=== PATIENT | male | born 1965 | race Caucasian/White ===

== ENCOUNTER 2016-10-13 19:07 | Emergency (ER) | payer MEDICAID ==
[~2016-10-13] VITALS: Ht 165.1 cm; Wt 77.0 kg
[~2016-10-13 19:07] MED LIST: BACL-141; GLIP2.5T; INSULIN; KETO15VI22; METF100C2; UNK HTN MEDS
[2016-10-13 22:23] LABS: BASOPHILS % 0.4 % (0.0-2.0); EOSINOPHILS % 0.5 % (0.0-5.0); HEMATOCRIT. 39.9 % (42.0-52.0); LYMPHOCYTES % 23.9 % (20.0-50.0); MEAN CORPUSCULAR HEMOGLOBIN 31.1 pg (28.0-32.0); MEAN CORPUSCULAR VOLUME 88.5 fL (80.0-94.0); MEAN PLATELET VOLUME 7.2 fl (7.4-10.4); MONOCYTES % 8.2 % (2.0-8.0); PLATELET 119 x1000/uL (130-400); RED BLOOD CELL COUNT 4.51 mill/uL (4.7-6.1); RED CELL DISTRIBUTION WIDTH 14.6 % (11.6-14.6)
[2016-10-13 22:38] LABS: CARBON DIOXIDE 27 mEq/L (21-32); CHLORIDE 99 mEq/L (98-107); ETHANOL BLOOD 224 mg/dL
[2016-10-14] MEDS ORDERED: KETOROLAC 60MG/2ML VIAL IM ONE (00:30)
[2016-10-14 01:04] VITALS: BP 132/86
== END 2016-10-14 02:09 | disposition home or self-care (01) ==
LOC: ER 19:29
DX: F10.129 Alcohol abuse with intoxication, unspecified (principal); E11.40 Type 2 diabetes mellitus with diabetic neuropathy, unspecified; I10 Essential (primary) hypertension; E78.00 Pure hypercholesterolemia, unspecified; Y90.7 Blood alcohol level of 200-239 mg/100 ml; Z59.0 Homelessness; Z79.4 Long term (current) use of insulin
CPT/HCPCS: 36415; 80053; 85025; 96372; 99284; G0482; J1885; Z7610

== ENCOUNTER 2017-03-20 20:42 | Emergency (ER) | payer MEDICAID ==
[~2017-03-20] VITALS: Ht 167.6 cm; Wt 77.0 kg
[2017-03-21 00:37] LABS: BASOPHILS % 0.7 % (0.0-2.0); EOSINOPHILS % 1.4 % (0.0-5.0); HEMATOCRIT. 43.2 % (42.0-52.0); LYMPHOCYTES % 22.8 % (20.0-50.0); MEAN CORPUSCULAR HEMOGLOBIN 32.4 pg (28.0-32.0); MEAN CORPUSCULAR VOLUME 93.4 fL (80.0-94.0); MEAN PLATELET VOLUME 7.6 fl (7.4-10.4); MONOCYTES % 9.8 % (2.0-8.0); NEUTROPHILS % 65.3 % (40.0-76.0); PLATELET 150 x1000/uL (130-400); RED BLOOD CELL COUNT 4.62 mill/uL (4.7-6.1); RED CELL DISTRIBUTION WIDTH 15.4 % (11.6-14.6)
[2017-03-21 00:42] LABS: CARBON DIOXIDE 25 mEq/L (21-32); CHLORIDE 108 mEq/L (98-107)
[2017-03-21 01:06] LABS: ETHANOL BLOOD 318 mg/dL
[2017-03-21 01:09] LABS: CLARITY URINE CLEAR (CLEAR); COLOR URINE YELLOW (YELLOW); KETONES URINE NEGATIVE (NEGATIVE); LEUKOCYTE ESTERASE URINE NEGATIVE (NEGATIVE); NITRITE URINE NEGATIVE (NEGATIVE); OCCULT BLOOD URINE NEGATIVE (NEGATIVE); PROTEIN URINE NEGATIVE (NEGATIVE); SPECIFIC GRAVITY URINE 1.011 (1.005-1.030)
[2017-03-21 01:30] LABS: *AMPHETAMINES SCREEN URINE NEGATIVE (NEGATIVE); *BARBITURATES SCREEN URINE NEGATIVE (NEGATIVE); *BENZODIAZEPINES SCREEN URINE NEGATIVE (NEGATIVE); *COCAINE SCREEN URINE NEGATIVE (NEGATIVE); CANNABINOID URINE SCREEN NEGATIVE (NEGATIVE); METHADONE URINE SCREEN NEGATIVE (NEGATIVE); OPIATES URINE SCREEN NEGATIVE (NEGATIVE); PHENCYCLIDINE URINE SCREEN NEGATIVE (NEGATIVE)
[2017-03-21 08:47] VITALS: BP 115/87
== END 2017-03-21 09:05 | disposition home or self-care (01) ==
LOC: ER 20:42
DX: F10.129 Alcohol abuse with intoxication, unspecified (principal); R10.9 Unspecified abdominal pain; I10 Essential (primary) hypertension; E78.00 Pure hypercholesterolemia, unspecified; E11.9 Type 2 diabetes mellitus without complications; Z79.4 Long term (current) use of insulin
CPT/HCPCS: 36415; 80053; 80305; 81003; 83690; 85025; 99284; G0482

== ENCOUNTER 2018-06-14 14:52 | Emergency (ER) | payer MEDICAID ==
[~2018-06-14] VITALS: Ht 167.6 cm; Wt 86.0 kg
[2018-06-14 15:04] VITALS: BP 146/84
== END 2018-06-14 18:32 | disposition left against medical advice (07) ==
LOC: ER 15:03
DX: M79.18 Myalgia, other site (principal); Z53.21 Procedure and treatment not carried out due to patient leaving prior to being seen by health care provider

== ENCOUNTER 2018-09-08 10:02 | Inpatient (IN) | payer MEDICAID ==
[~2018-09-08] VITALS: Ht 167.6 cm; Wt 87.5 kg
[2018-09-08 11:45] LABS: CLARITY URINE CLEAR (CLEAR); COLOR URINE YELLOW (YELLOW); KETONES URINE NEGATIVE (NEGATIVE); LEUKOCYTE ESTERASE URINE NEGATIVE (NEGATIVE); NITRITE URINE NEGATIVE (NEGATIVE); OCCULT BLOOD URINE NEGATIVE (NEGATIVE); PROTEIN URINE NEGATIVE (NEGATIVE); SPECIFIC GRAVITY URINE 1.013 (1.005-1.030)
[2018-09-08 11:52] LABS: CHLORIDE 109 mEq/L (98-107)
[2018-09-08 11:54] LABS: PROTHROMBIN TIME 10.4 sec (9.6-11.0)
[2018-09-08 11:56] LABS: BASOPHILS % 1.1 % (0.0-2.0); EOSINOPHILS % 5.5 % (0.0-5.0); HEMATOCRIT. 40.1 % (42.0-52.0); HEMOGLOBIN. 14.1 g/dL (14.0-18.0); LYMPHOCYTES % 21.8 % (20.0-50.0); MEAN CORPUSCULAR VOLUME 88.3 fL (80.0-94.0); MEAN PLATELET VOLUME 9.3 fl (7.4-10.4); MONOCYTES % 7.3 % (2.0-8.0); NEUTROPHILS % 64.3 % (40.0-76.0); PLATELET 181 x1000/uL (130-400); RED BLOOD CELL COUNT 4.54 mill/uL (4.7-6.1); RED CELL DISTRIBUTION WIDTH 13.4 % (11.6-14.6)
[2018-09-08 11:58] LABS: ETHANOL BLOOD < 10 mg/dL
[2018-09-08 11:59] LABS: *AMPHETAMINES SCREEN URINE NEGATIVE (NEGATIVE); *BARBITURATES SCREEN URINE NEGATIVE (NEGATIVE); *BENZODIAZEPINES SCREEN URINE NEGATIVE (NEGATIVE); *COCAINE SCREEN URINE NEGATIVE (NEGATIVE); METHADONE URINE SCREEN NEGATIVE (NEGATIVE)
[2018-09-08 12:00] LABS: LDL CHOLESTEROL 100 mg/dL (5-100)
[2018-09-08 12:01] LABS: CANNABINOID URINE SCREEN NEGATIVE (NEGATIVE); OPIATES URINE SCREEN NEGATIVE (NEGATIVE); PHENCYCLIDINE URINE SCREEN NEGATIVE (NEGATIVE)
[2018-09-08] MEDS ORDERED: ASPIRIN 81MG TABLET PO ONE (12:45)
[2018-09-08] MEDS: ACETAMINOPHEN 325MG TABLET PO PRN ×2 (16:00→22:01)
[2018-09-08 17:10] VITALS: BP 133/89
[2018-09-08 17:20] VITALS: BP 133/89
[2018-09-08 20:00] VITALS: BP 134/86
[2018-09-08] MEDS ORDERED: DEXTROSE 50% WATER 50ML SYRINGE IV PRN (21:00)
[2018-09-08] MEDS ORDERED: ENOXAPARIN 40MG/0.4ML SYR SUBCUT NR (21:00)
[2018-09-08] MEDS ORDERED: ACETAMINOPHEN 325MG TABLET PO PRN (21:00)
[2018-09-08] MEDS ORDERED: CLONIDINE 0.1MG TABLET PO PRN (21:00)
[2018-09-08] MEDS: BLOOD SUGAR DIAGNOSTIC STRIP TEST SCH (21:52)
[2018-09-08] MEDS: GABAPENTIN 300MG CAPSULE PO SCH (22:00)
[2018-09-08] MEDS: INSULIN LISPRO 100 UNITS/ML SUBCUT SCH (22:00)
[2018-09-09] VITALS: BP 109/63
[2018-09-09 04:00] VITALS: BP 113/68
[2018-09-09] MEDS: GABAPENTIN 300MG CAPSULE PO SCH ×3 (06:20→21:50)
[2018-09-09] MEDS: BLOOD SUGAR DIAGNOSTIC STRIP TEST SCH ×4 (06:22→21:50)
[2018-09-09 08:00] VITALS: BP 112/71
[2018-09-09] MEDS: INSULIN LISPRO 100 UNITS/ML SUBCUT SCH ×4 (08:17→21:50)
[2018-09-09] MEDS ORDERED: ASPIRIN 81MG TABLET PO SCH (09:00)
[2018-09-09 12:00] VITALS: BP 121/80
[2018-09-09 12:14] LABS: EOSINOPHILS % 5.9 % (0.0-5.0); HEMATOCRIT. 41.6 % (42.0-52.0); HEMOGLOBIN. 14.5 g/dL (14.0-18.0); LYMPHOCYTES % 24.7 % (20.0-50.0); MEAN CORPUSCULAR HEMOGLOBIN 30.5 pg (28.0-32.0); MEAN CORPUSCULAR VOLUME 87.7 fL (80.0-94.0); MEAN PLATELET VOLUME 9.4 fl (7.4-10.4); MONOCYTES % 6.5 % (2.0-8.0); NEUTROPHILS % 61.9 % (40.0-76.0); PLATELET 205 x1000/uL (130-400); RED BLOOD CELL COUNT 4.75 mill/uL (4.7-6.1); RED CELL DISTRIBUTION WIDTH 13.5 % (11.6-14.6)
[2018-09-09 12:18] LABS: T4 FREE 1.16 ng/dL (0.76-1.46)
[2018-09-09 12:50] LABS: FOLIC ACID (FOLATE) SERUM 14.2 ng/mL (>5.38)
[2018-09-09] MEDS: ACETAMINOPHEN 325MG TABLET PO PRN (12:58)
[2018-09-09] MEDS ORDERED: CLOPIDOGREL 75MG TABLET PO NR (15:15)
[2018-09-09] MEDS: TRAMADOL 50MG TABLET PO PRN (15:33)
[2018-09-09 16:00] VITALS: BP 108/68
[2018-09-09 20:00] VITALS: BP 123/83
[2018-09-09 21:38] LABS: CHLORIDE 104 mEq/L (98-107)
[2018-09-09 21:44] LABS: LDL CHOLESTEROL 112 mg/dL (5-100)
[2018-09-09 21:46] LABS: HDL CHOLESTEROL 33 mg/dL (40-59)
[2018-09-10] VITALS: BP 112/68
[2018-09-10] MEDS: TRAMADOL 50MG TABLET PO PRN ×2 (02:28→13:43)
[2018-09-10 04:00] VITALS: BP 121/72
[2018-09-10] MEDS: GABAPENTIN 300MG CAPSULE PO SCH ×2 (06:06→13:25)
[2018-09-10] MEDS: BLOOD SUGAR DIAGNOSTIC STRIP TEST SCH ×2 (06:40→17:40)
[2018-09-10] MEDS: INSULIN LISPRO 100 UNITS/ML SUBCUT SCH ×3 (07:57→17:51)
[2018-09-10 08:00] VITALS: BP 131/83
[2018-09-10] MEDS ORDERED: IBUP-2030 MT (08:49)
[2018-09-10] MEDS ORDERED: LORA-1118 MT (08:49)
[2018-09-10] MEDS ORDERED: METF100092 MT (08:49)
[2018-09-10] MEDS ORDERED: GABA-533 MT (08:49)
[2018-09-10] MEDS ORDERED: CLOPIDOGREL 75MG TABLET PO SCH (09:00)
[2018-09-10 12:00] VITALS: BP 126/84
[2018-09-10 17:28] VITALS: BP 110/73
[2018-09-10 18:19] VITALS: BP 110/73
== END 2018-09-10 18:48 | disposition home or self-care (01) | DRG 82 ==
LOC: ER 10:02 → 6WST 12:50 → EDBEDREQ 12:52 → EDBEDREQSVC 12:52 → ENRESERV 15:30 → 5WST 09-10 12:17
PROVIDERS: ADMIT Internal Medicine; ATTEND Internal Medicine
DX: E11.39 Type 2 diabetes mellitus with other diabetic ophthalmic complication (principal); H49.02 Third [oculomotor] nerve palsy, left eye; H49.20 Sixth [abducent] nerve palsy, unspecified eye; E11.42 Type 2 diabetes mellitus with diabetic polyneuropathy; E78.00 Pure hypercholesterolemia, unspecified; G89.29 Other chronic pain; M48.061 Spinal stenosis, lumbar region without neurogenic claudication; E78.5 Hyperlipidemia, unspecified; Z82.49 Family history of ischemic heart disease and other diseases of the circulatory system; Z83.3 Family history of diabetes mellitus; Z86.73 Personal history of transient ischemic attack (TIA), and cerebral infarction without residual deficits; Z79.899 Other long term (current) drug therapy
CPT/HCPCS: 36415; 70544; 70553; 71045; 80048; 80061; 80305; 80320; 82607; 82746; 82962; 83036; 83721; 84439; 84443; 84481; 84484; 85651; 86038; 86592; 93005; 93306; 93880; 97162; 97166; 99285; J1650; J1815; G0480

== ENCOUNTER 2019-07-21 17:10 | Emergency (ER) | payer MEDICAID ==
[~2019-07-21] VITALS: Ht 175.3 cm; Wt 78.0 kg
[~2019-07-21 17:10] MED LIST changes: -BACL-141; +GABA-533 MT; -GLIP2.5T; +IBUP-2030 MT; -INSULIN; -KETO15VI22; +LORA-1118 MT; +METF100092 MT; -METF100C2; -UNK HTN MEDS
[2019-07-21 17:19] VITALS: BP 108/67
[2019-07-21] MEDS ORDERED: BACITRACIN ZINC OINT UDPKT TOP ONE (18:00)
[2019-07-21] MEDS ORDERED: TETANUS, DIPHTHERIA, PERTUSSIS VAC/PF 0.5ML (>7YR OLD) IM ONE (18:00)
== END 2019-07-21 18:13 | disposition home or self-care (01) ==
LOC: ER 17:10
DX: S90.415A Abrasion, left lesser toe(s), initial encounter (principal); X58.XXXA Exposure to other specified factors, initial encounter; Y93.89 Activity, other specified; I10 Essential (primary) hypertension; Y92.89 Other specified places as the place of occurrence of the external cause; E11.9 Type 2 diabetes mellitus without complications; Z23 Encounter for immunization; Z79.84 Long term (current) use of oral hypoglycemic drugs; Z86.73 Personal history of transient ischemic attack (TIA), and cerebral infarction without residual deficits
CPT/HCPCS: 82962; 90471; 90715; 99283

== ENCOUNTER 2021-01-25 17:28 | Emergency (ER) | payer MEDICARE, MEDICAID ==
[~2021-01-25] VITALS: Ht 175.3 cm; Wt 85.0 kg
[2021-01-25] MEDS ORDERED: KETOROLAC 60MG/2ML VIAL IM ONE (17:45)
[2021-01-25] MEDS ORDERED: DIAZEPAM 5 MG TABLET PO ONE (17:45)
[2021-01-25 18:13] VITALS: BP 133/88
[2021-01-25] MEDS ORDERED: IBUP-2030 MT (19:09)
[2021-01-25] MEDS ORDERED: METH-773 MT (19:09)
== END 2021-01-25 19:30 | disposition home or self-care (01) ==
LOC: ER 17:28
DX: M54.59 Other low back pain (principal); M25.551 Pain in right hip; I10 Essential (primary) hypertension; E11.9 Type 2 diabetes mellitus without complications; E78.00 Pure hypercholesterolemia, unspecified; Z86.73 Personal history of transient ischemic attack (TIA), and cerebral infarction without residual deficits
CPT/HCPCS: 72100; 73502; 93005; 96372; 99284; J1885

== ENCOUNTER 2021-06-05 08:52 | Inpatient (IN) | payer MEDICARE, MEDICAID ==
[~2021-06-05] VITALS: Ht 167.6 cm; Wt 88.0 kg
[~2021-06-05 08:52] MED LIST changes: +METH-773 MT
[2021-06-05] MEDS ORDERED: SODIUM CHLORIDE 0.9% 1,000 ML IV ONE (09:30)
[2021-06-05 09:54] LABS: BASOPHILS % 0.2 % (0.0-2.0); EOSINOPHILS % 0.3 % (0.0-5.0); HEMATOCRIT. 39.7 % (42.0-52.0); LYMPHOCYTES % 9.1 % (20.0-50.0); MEAN CORPUSCULAR VOLUME 85.2 fL (80.0-94.0); MEAN PLATELET VOLUME 8.5 fl (7.4-10.4); MONOCYTES % 9.6 % (2.0-8.0); NEUTROPHILS % 80.8 % (40.0-76.0); PLATELET 192 x1000/uL (130-400); RED BLOOD CELL COUNT 4.67 mill/uL (4.7-6.1)
[2021-06-05 10:00] LABS: CHLORIDE 101 mEq/L (98-107)
[2021-06-05] MEDS ORDERED: ONDANSETRON HCL 4MG/2ML INJ IV ONE (11:15)
[2021-06-05] MEDS ORDERED: MORPHINE SULFATE 4 MG/ML CPJ (NOT FOR IM USE) IV ONE (11:15)
[2021-06-05] MEDS ORDERED: IOHEXOL-300 100 ML BOTTLE ONE (12:23)
[2021-06-05] MEDS ORDERED: PIPERACILLIN/TAZOBACTAM 3.375GM/50ML PREMIX IV ONE (13:30)
[2021-06-05] MEDS ORDERED: FENTANYL CITRATE/PF 50MCG/ML 2ML VIAL IV ONE (13:30)
[2021-06-05] MEDS ORDERED: PIPERACILLIN/TAZ 3.375G PREMIX 50 ML IV NR (13:45)
[2021-06-05] MEDS ORDERED: PANTOPRAZOLE SODIUM 40 MG/VIAL IV SCH (16:15)
[2021-06-05] MEDS ORDERED: DIPHENHYDRAMINE 50MG/ML VIAL IV PRN (16:15)
[2021-06-05] MEDS ORDERED: DEXTROSE 50% WATER 50ML SYRINGE IV PRN (16:15)
[2021-06-05] MEDS ORDERED: ACETAMINOPHEN 650MG SUPP PR PRN (16:15)
[2021-06-05] MEDS ORDERED: IPRATROPIUM/ALBUTEROL 0.5-3(2.5)MG/3ML NEB NEB PRN (16:15)
[2021-06-05] MEDS ORDERED: NALOXONE HCL 0.4MG/ML VIAL IV PRN (16:30)
[2021-06-05] MEDS: MORPHINE SULFATE 2 MG/ML CPJ (NOT FOR IM USE) IV PRN ×2 (16:52→21:12)
[2021-06-05] MEDS: SODIUM CHLORIDE 0.9% 1,000 ML IV SCH (16:52)
[2021-06-05 17:15] LABS: INR 1.1; PROTHROMBIN TIME 11.5 sec (9.6-11.0)
[2021-06-05] MEDS: LORAZEPAM 2MG/ML CPJ IV PRN ×2 (18:25→22:30)
[2021-06-05] MEDS: ENOXAPARIN 40MG/0.4ML SYR SUBCUT SCH (18:27)
[2021-06-05] MEDS: ONDANSETRON HCL 4MG/2ML INJ IV PRN (18:29)
[2021-06-05] MEDS: BLOOD SUGAR DIAGNOSTIC STRIP TEST SCH ×2 (18:36→21:00)
[2021-06-05] MEDS: INSULIN LISPRO 100 UNITS/ML SUBCUT SCH ×2 (18:45→21:00)
[2021-06-05] MEDS: PIPERACILLIN/TAZ 3.375G PREMIX 50 ML IV SCH (22:00)
[2021-06-06] VITALS (17 sets, daily range): BP systolic 113–147; BP diastolic 65–95
[2021-06-06] MEDS: SODIUM CHLORIDE 0.9% 1,000 ML IV SCH ×3 (02:09→19:42)
[2021-06-06] MEDS ORDERED: LISI2.5T47 MT (03:10)
[2021-06-06] MEDS: PIPERACILLIN/TAZ 3.375G PREMIX 50 ML IV SCH (06:00)
[2021-06-06] MEDS: MORPHINE SULFATE 2 MG/ML CPJ (NOT FOR IM USE) IV PRN ×4 (06:30→21:13)
[2021-06-06] MEDS: BLOOD SUGAR DIAGNOSTIC STRIP TEST SCH ×3 (07:30→20:00)
[2021-06-06 10:17] LABS: HEMATOCRIT. 29.1 % (42.0-52.0); HEMOGLOBIN. 9.9 g/dL (14.0-18.0); MEAN CORPUSCULAR VOLUME 87.7 fL (80.0-94.0); MEAN PLATELET VOLUME 9.7 fl (7.4-10.4); PLATELET 186 x1000/uL (130-400); RED BLOOD CELL COUNT 3.31 mill/uL (4.7-6.1)
[2021-06-06 10:25] LABS: CHLORIDE 101 mEq/L (98-107)
[2021-06-06] MEDS: PANTOPRAZOLE SODIUM 40 MG/VIAL IV SCH ×2 (11:00→21:12)
[2021-06-06 12:36] LABS: BG BASE EXCESS -3.5 mmol/L (-2.0-2.0); BG CARBOXYHEMOGLOBIN 0.1 % (0.5-1.5); BG DEOXYHEMOGLOBIN 3.9 % (0.0-5.0); BG FRACTION INSPIRED OXYGEN 21; BG HCO3 ACT 20.2 mmol/L (22.0-26.0); BG METHEMOGLOBIN 0.3 % (0.0-1.5); BG OXYGEN SATURATION 96.1 % (92.0-98.5); BG OXYHEMOGLOBIN 95.7 % (94.0-97.0); BG PCO2 31.4 mmHg (35.0-45.0); BG PH 7.427 (7.350-7.450); BG SAMPLE SITE RIGHT BRACHIAL; BG TOTAL HEMOGLOBIN 9.4 g/dL (12.0-18.0); BG VENT MODE ROOM AIR
[2021-06-06] MEDS ORDERED: INSULIN LISPRO 100 UNITS/ML SUBCUT SCH ×2 (12:50→14:00)
[2021-06-06 13:43] LABS: HEMATOCRIT 25.8 % (42.0-52.0)
[2021-06-06] MEDS ORDERED: LIDOCAINE HCL/PF 1% 10 MG/ML 5ML VIAL ONE (14:32)
[2021-06-06 14:51] LABS: PLATELET ESTIMATE NORMAL
[2021-06-06] MEDS: ENOXAPARIN 40MG/0.4ML SYR SUBCUT SCH (17:00)
[2021-06-06] MEDS: MEROPENEM 1,000 MG in SODIUM CHLORIDE 0.9% 100 ML IV SCH (18:40)
[2021-06-06] MEDS: INSULIN LISPRO 100 UNITS/ML SUBCUT SCH ×2 (19:41→21:15)
[2021-06-06 23:17] LABS: HEMATOCRIT 27.4 % (42.0-52.0); HEMOGLOBIN 9.6 g/dL (14.0-18.0)
[2021-06-06 23:29] LABS: INR 1.1; PARTIAL THROMBOPLASTIN TIME 29.9 sec (23.4-31.0); PROTHROMBIN TIME 11.5 sec (9.6-11.0)
[2021-06-07] VITALS (82 sets, daily range): BP systolic 109–153; BP diastolic 57–94
[2021-06-07] MEDS: MEROPENEM 1,000 MG in SODIUM CHLORIDE 0.9% 100 ML IV SCH ×3 (02:36→17:37)
[2021-06-07] MEDS: ONDANSETRON HCL 4MG/2ML INJ IV PRN ×2 (02:36→20:37)
[2021-06-07] MEDS: BLOOD SUGAR DIAGNOSTIC STRIP TEST SCH ×6 (04:00→20:54)
[2021-06-07] MEDS: MORPHINE SULFATE 2 MG/ML CPJ (NOT FOR IM USE) IV PRN (05:17)
[2021-06-07] MEDS: INSULIN LISPRO 100 UNITS/ML SUBCUT SCH ×6 (05:18→21:17)
[2021-06-07] MEDS: SODIUM CHLORIDE 0.9% 1,000 ML IV SCH ×3 (05:19→20:37)
[2021-06-07 06:28] LABS: BASOPHILS % 0.1 % (0.0-2.0); EOSINOPHILS % 0.3 % (0.0-5.0); HEMATOCRIT. 26.4 % (42.0-52.0); HEMOGLOBIN. 9.4 g/dL (14.0-18.0); LYMPHOCYTES % 11.2 % (20.0-50.0); MEAN CORPUSCULAR HEMOGLOBIN 30.4 pg (28.0-32.0); MEAN CORPUSCULAR VOLUME 85.7 fL (80.0-94.0); MEAN PLATELET VOLUME 9.4 fl (7.4-10.4); MONOCYTES % 7.7 % (2.0-8.0); NEUTROPHILS % 80.7 % (40.0-76.0); PLATELET 189 x1000/uL (130-400); RED BLOOD CELL COUNT 3.08 mill/uL (4.7-6.1); RED CELL DISTRIBUTION WIDTH 13.8 % (11.6-14.6)
[2021-06-07 06:33] LABS: CHLORIDE 107 mEq/L (98-107)
[2021-06-07] MEDS: PANTOPRAZOLE SODIUM 40 MG/VIAL IV SCH ×2 (09:08→20:37)
[2021-06-07] MEDS: LORAZEPAM 2MG/ML CPJ IV PRN ×2 (09:18→20:37)
[2021-06-07] MEDS ORDERED: LIDOCAINE HCL 1% 30ML VIAL (10MG/ML) ONE (10:36)
[2021-06-07] MEDS: HYDROMORPHONE HCL/PF 2MG/ML CPJ IV PRN ×2 (10:53→17:37)
[2021-06-07 13:23] LABS: HEMATOCRIT 21.8 % (42.0-52.0)
[2021-06-07 13:30] LABS: PROTHROMBIN TIME 10.6 sec (9.6-11.0)
[2021-06-07 16:43] LABS: HEMATOCRIT 22.7 % (42.0-52.0); HEMOGLOBIN 8.4 g/dL (14.0-18.0)
[2021-06-07 16:57] LABS: HAPTOGLOBIN 209 mg/dL (30-200)
[2021-06-07 16:58] LABS: CREATINE KINASE 44 IU/L (39-308)
[2021-06-07 16:59] LABS: CREATINE KINASE MB FRACTION < 1.0 ng/mL (0.5-3.6)
[2021-06-07 17:03] LABS: CLARITY URINE CLEAR (CLEAR); COLOR URINE DARK YELLOW (YELLOW); KETONES URINE TRACE (NEGATIVE); LEUKOCYTE ESTERASE URINE TRACE (NEGATIVE); NITRITE URINE NEGATIVE (NEGATIVE); OCCULT BLOOD URINE NEGATIVE (NEGATIVE); PROTEIN URINE 1+ (NEGATIVE); SPECIFIC GRAVITY URINE 1.025 (1.005-1.030)
[2021-06-07 17:17] LABS: HEPATITIS B SURFACE ANTIGEN NEGATIVE
[2021-06-07 23:33] LABS: HEMATOCRIT 22.3 % (42.0-52.0); HEMOGLOBIN 8.2 g/dL (14.0-18.0)
[2021-06-08] VITALS (83 sets, daily range): BP systolic 99–168; BP diastolic 27–100
[2021-06-08] MEDS: BLOOD SUGAR DIAGNOSTIC STRIP TEST SCH ×6 (00:41→20:41)
[2021-06-08] MEDS: MEROPENEM 1,000 MG in SODIUM CHLORIDE 0.9% 100 ML IV SCH ×3 (02:52→18:11)
[2021-06-08] MEDS: SODIUM CHLORIDE 0.9% 1,000 ML IV SCH (03:09)
[2021-06-08] MEDS: ONDANSETRON HCL 4MG/2ML INJ IV PRN (04:57)
[2021-06-08] MEDS: HYDROMORPHONE HCL/PF 2MG/ML CPJ IV PRN ×2 (04:58→18:11)
[2021-06-08] MEDS: INSULIN LISPRO 100 UNITS/ML SUBCUT SCH ×6 (05:02→20:00)
[2021-06-08 06:04] LABS: INR 0.9; PROTHROMBIN TIME 10.1 sec (9.6-11.0)
[2021-06-08] MEDS: LORAZEPAM 2MG/ML CPJ IV PRN ×3 (06:05→23:13)
[2021-06-08 06:07] LABS: CHLORIDE 115 mEq/L (98-107)
[2021-06-08 06:19] LABS: BASOPHILS % 0.4 % (0.0-2.0); EOSINOPHILS % 3.9 % (0.0-5.0); HEMATOCRIT. 23.9 % (42.0-52.0); HEMOGLOBIN. 8.6 g/dL (14.0-18.0); LYMPHOCYTES % 14.1 % (20.0-50.0); MEAN CORPUSCULAR VOLUME 86.2 fL (80.0-94.0); MEAN PLATELET VOLUME 8.7 fl (7.4-10.4); NEUTROPHILS % 74.6 % (40.0-76.0); PLATELET 210 x1000/uL (130-400); RED BLOOD CELL COUNT 2.77 mill/uL (4.7-6.1); RED CELL DISTRIBUTION WIDTH 14.1 % (11.6-14.6)
[2021-06-08] MEDS: PANTOPRAZOLE SODIUM 40 MG/VIAL IV SCH ×2 (08:57→20:50)
[2021-06-08] MEDS: DEXTROSE 5% WATER 1,000 ML IV SCH ×2 (10:42→18:11)
[2021-06-08 11:27] LABS: HEMATOCRIT 23.3 % (42.0-52.0); HEMOGLOBIN 8.4 g/dL (14.0-18.0)
[2021-06-08] MEDS ORDERED: PROPOFOL 200MG/20ML VIAL IV ONE (13:53)
[2021-06-08] MEDS ORDERED: MIDAZOLAM HCL 2 MG/2 ML VIAL ONE (13:53)
[2021-06-08 15:57] LABS: BG BASE EXCESS -1.3 mmol/L (-2.0-2.0); BG DEOXYHEMOGLOBIN 5.8 % (0.0-5.0); BG FRACTION INSPIRED OXYGEN 21; BG HCO3 ACT 22.2 mmol/L (22.0-26.0); BG METHEMOGLOBIN 0.3 % (0.0-1.5); BG OXYGEN SATURATION 94.2 % (92.0-98.5); BG OXYHEMOGLOBIN 93.9 % (94.0-97.0); BG PCO2 32.4 mmHg (35.0-45.0); BG PH 7.454 (7.350-7.450); BG PO2 66.9 mmHg (75.0-100.0); BG SAMPLE SITE RIGHT RADIAL; BG TOTAL HEMOGLOBIN 8.8 g/dL (12.0-18.0); BG VENT MODE ROOM AIR
[2021-06-08 21:55] LABS: HEMATOCRIT 19.9 % (42.0-52.0); HEMOGLOBIN 6.8 g/dL (14.0-18.0)
[2021-06-09] VITALS (73 sets, daily range): BP systolic 102–156; BP diastolic 47–101
[2021-06-09] MEDS: BLOOD SUGAR DIAGNOSTIC STRIP TEST SCH ×6 (00:37→20:00)
[2021-06-09] MEDS: INSULIN LISPRO 100 UNITS/ML SUBCUT SCH ×6 (00:40→20:00)
[2021-06-09] MEDS: DEXTROSE 5% WATER 1,000 ML IV SCH ×3 (00:45→19:00)
[2021-06-09] MEDS: LORAZEPAM 2MG/ML CPJ IV PRN ×4 (00:55→19:00)
[2021-06-09] MEDS: ONDANSETRON HCL 4MG/2ML INJ IV PRN (00:56)
[2021-06-09] MEDS: MEROPENEM 1,000 MG in SODIUM CHLORIDE 0.9% 100 ML IV SCH ×3 (01:04→18:59)
[2021-06-09] MEDS: HYDROMORPHONE HCL/PF 2MG/ML CPJ IV PRN (02:51)
[2021-06-09 07:34] LABS: BASOPHILS % 0.2 % (0.0-2.0); EOSINOPHILS % 4.3 % (0.0-5.0); HEMATOCRIT. 26.7 % (42.0-52.0); HEMOGLOBIN. 9.5 g/dL (14.0-18.0); LYMPHOCYTES % 15.1 % (20.0-50.0); MEAN CORPUSCULAR HEMOGLOBIN 30.6 pg (28.0-32.0); MEAN CORPUSCULAR VOLUME 86.5 fL (80.0-94.0); MEAN PLATELET VOLUME 7.6 fl (7.4-10.4); NEUTROPHILS % 70.4 % (40.0-76.0); PLATELET 218 x1000/uL (130-400); RED BLOOD CELL COUNT 3.09 mill/uL (4.7-6.1); RED CELL DISTRIBUTION WIDTH 14.2 % (11.6-14.6)
[2021-06-09 07:46] LABS: CHLORIDE 111 mEq/L (98-107)
[2021-06-09] MEDS: PANTOPRAZOLE SODIUM 40 MG/VIAL IV SCH ×2 (09:03→21:05)
[2021-06-09] MEDS ORDERED: NICOTINE 14MG PATCH TD SCH (11:15)
[2021-06-09] MEDS ORDERED: POTASSIUM CHLORIDE 20MEQ TABLET SR PO SCH (12:15)
[2021-06-09] MEDS ORDERED: KCL 20MEQ/100ML PREMIX 100 ML IV SCH (13:00)
[2021-06-09] MEDS: FOLIC ACID 1 MG, THIAMINE HCL 100 MG, MVI, ADULT NO.1 10 ML in DEXTROSE 5% WATER 1,000 ML IV SCH ×4 (21:05)
[2021-06-10] VITALS (40 sets, daily range): BP systolic 92–138; BP diastolic 26–101
[2021-06-10] MEDS: MEROPENEM 1,000 MG in SODIUM CHLORIDE 0.9% 100 ML IV SCH ×3 (02:36→17:34)
[2021-06-10] MEDS: DEXTROSE 5% WATER 1,000 ML IV SCH ×3 (02:36→17:35)
[2021-06-10] MEDS: BLOOD SUGAR DIAGNOSTIC STRIP TEST SCH ×6 (04:48→20:10)
[2021-06-10] MEDS: INSULIN LISPRO 100 UNITS/ML SUBCUT SCH ×6 (04:58→20:11)
[2021-06-10 05:40] LABS: BASOPHILS % 0.5 % (0.0-2.0); EOSINOPHILS % 5.2 % (0.0-5.0); HEMATOCRIT. 23.2 % (42.0-52.0); HEMOGLOBIN. 8.1 g/dL (14.0-18.0); LYMPHOCYTES % 20.1 % (20.0-50.0); MEAN CORPUSCULAR HEMOGLOBIN 30.6 pg (28.0-32.0); MEAN CORPUSCULAR VOLUME 87.3 fL (80.0-94.0); MEAN PLATELET VOLUME 7.8 fl (7.4-10.4); MONOCYTES % 10.4 % (2.0-8.0); NEUTROPHILS % 63.8 % (40.0-76.0); PLATELET 213 x1000/uL (130-400); RED BLOOD CELL COUNT 2.66 mill/uL (4.7-6.1); RED CELL DISTRIBUTION WIDTH 14.1 % (11.6-14.6)
[2021-06-10 05:44] LABS: CHLORIDE 103 mEq/L (98-107)
[2021-06-10] MEDS: PANTOPRAZOLE SODIUM 40 MG/VIAL IV SCH ×2 (09:57→20:10)
[2021-06-10] MEDS ORDERED: POTASSIUM CHLORIDE 20MEQ TABLET SR PO NR (12:00)
[2021-06-10] MEDS: FOLIC ACID 1 MG, THIAMINE HCL 100 MG, MVI, ADULT NO.1 10 ML in DEXTROSE 5% WATER 1,000 ML IV SCH ×4 (20:10)
[2021-06-11] VITALS (24 sets, daily range): BP systolic 105–144; BP diastolic 51–93
[2021-06-11] MEDS: MEROPENEM 1,000 MG in SODIUM CHLORIDE 0.9% 100 ML IV SCH ×2 (01:04→09:13)
[2021-06-11] MEDS: DEXTROSE 5% WATER 1,000 ML IV SCH ×3 (01:05→18:38)
[2021-06-11] MEDS: INSULIN LISPRO 100 UNITS/ML SUBCUT SCH ×6 (01:06→21:28)
[2021-06-11] MEDS: HYDROMORPHONE HCL/PF 2MG/ML CPJ IV PRN ×2 (03:34→08:35)
[2021-06-11] MEDS: BLOOD SUGAR DIAGNOSTIC STRIP TEST SCH ×6 (04:37→20:00)
[2021-06-11 05:43] LABS: BASOPHILS % 0.5 % (0.0-2.0); EOSINOPHILS % 5.5 % (0.0-5.0); HEMATOCRIT. 23.6 % (42.0-52.0); HEMOGLOBIN. 8.5 g/dL (14.0-18.0); MEAN CORPUSCULAR HEMOGLOBIN 30.9 pg (28.0-32.0); MEAN CORPUSCULAR VOLUME 85.8 fL (80.0-94.0); MEAN PLATELET VOLUME 7.3 fl (7.4-10.4); MONOCYTES % 12.3 % (2.0-8.0); NEUTROPHILS % 57.7 % (40.0-76.0); PLATELET 256 x1000/uL (130-400); RED BLOOD CELL COUNT 2.75 mill/uL (4.7-6.1); RED CELL DISTRIBUTION WIDTH 14.2 % (11.6-14.6)
[2021-06-11 05:52] LABS: CHLORIDE 106 mEq/L (98-107)
[2021-06-11 05:54] LABS: PROTHROMBIN TIME 10.6 sec (9.6-11.0)
[2021-06-11] MEDS: PANTOPRAZOLE SODIUM 40 MG/VIAL IV SCH ×2 (08:23→21:19)
[2021-06-11] MEDS ORDERED: POTASSIUM CHLORIDE INJ 40 MEQ in DEXT 5% WATER 250 ML IV ONE (08:45)
[2021-06-11] MEDS ORDERED: POTASSIUM CHLORIDE 20MEQ TABLET SR PO NR (08:45)
[2021-06-11] MEDS: KCL 20MEQ/100ML PREMIX 100 ML IV SCH ×2 (10:51→13:55)
[2021-06-11] MEDS: FOLIC ACID 1 MG, THIAMINE HCL 100 MG, MVI, ADULT NO.1 10 ML in DEXTROSE 5% WATER 1,000 ML IV SCH ×4 (22:22)
[2021-06-12] VITALS: BP 126/71
[2021-06-12] MEDS: BLOOD SUGAR DIAGNOSTIC STRIP TEST SCH ×3 (00:48→11:01)
[2021-06-12] MEDS: DEXTROSE 5% WATER 1,000 ML IV SCH ×2 (00:48→11:04)
[2021-06-12 04:00] VITALS: BP 113/71
[2021-06-12] MEDS: INSULIN LISPRO 100 UNITS/ML SUBCUT SCH ×3 (05:14→11:38)
[2021-06-12 06:25] LABS: CHLORIDE 107 mEq/L (98-107)
[2021-06-12 06:36] LABS: BASOPHILS % 0.5 % (0.0-2.0); EOSINOPHILS % 4.9 % (0.0-5.0); HEMATOCRIT. 24.3 % (42.0-52.0); HEMOGLOBIN. 8.7 g/dL (14.0-18.0); LYMPHOCYTES % 23.9 % (20.0-50.0); MEAN CORPUSCULAR HEMOGLOBIN 30.7 pg (28.0-32.0); MEAN CORPUSCULAR VOLUME 86.1 fL (80.0-94.0); MEAN PLATELET VOLUME 7.3 fl (7.4-10.4); MONOCYTES % 9.5 % (2.0-8.0); NEUTROPHILS % 61.2 % (40.0-76.0); PLATELET 315 x1000/uL (130-400); RED BLOOD CELL COUNT 2.82 mill/uL (4.7-6.1); RED CELL DISTRIBUTION WIDTH 14.2 % (11.6-14.6)
[2021-06-12 08:00] VITALS: BP 127/78
[2021-06-12] MEDS ORDERED: POTASSIUM CHLORIDE 20MEQ TABLET SR PO NR (10:45)
[2021-06-12] MEDS: PANTOPRAZOLE SODIUM 40 MG/VIAL IV SCH (11:03)
[2021-06-12 12:00] VITALS: BP 117/72
[2021-06-12 14:43] VITALS: BP 119/76
[2021-06-12] MEDS ORDERED: PANT40SU MT (15:26)
[2021-06-12 16:00] VITALS: BP 118/76
== END 2021-06-12 15:00 | disposition home health service (06) | DRG 444 ==
LOC: ER 08:52 → MICUSO 14:59 → EDBEDREQ 15:00 → EDBEDREQTM 15:00 → EDBEDREQDT 06-06 00:30 → EDBEDREQSVC 06-06 00:30 → 6WST 06-06 02:49 → MICUNO 06-06 17:47 → 8WST 06-11 17:42
PROVIDERS: ADMIT Internal Medicine; ATTEND Internal Medicine
PROC: 30233N1 Transfusion of Nonautologous Red Blood Cells into Peripheral Vein, Percutaneous Approach (ICD-10-PCS; principal; 2021-06-06)
PROC: 05HY33Z Insertion of Infusion Device into Upper Vein, Percutaneous Approach (ICD-10-PCS; 2021-06-06)
PROC: B54MZZA Ultrasonography of Right Upper Extremity Veins, Guidance (ICD-10-PCS; 2021-06-06)
PROC: 0DB78ZX Excision of Stomach, Pylorus, Via Natural or Artificial Opening Endoscopic, Diagnostic (ICD-10-PCS; 2021-06-12)
DX: K80.01 Calculus of gallbladder with acute cholecystitis with obstruction (principal); K25.4 Chronic or unspecified gastric ulcer with hemorrhage; K29.71 Gastritis, unspecified, with bleeding; D68.9 Coagulation defect, unspecified; E87.0 Hyperosmolality and hypernatremia; I10 Essential (primary) hypertension; E78.5 Hyperlipidemia, unspecified; K57.30 Diverticulosis of large intestine without perforation or abscess without bleeding; K31.84 Gastroparesis; K74.60 Unspecified cirrhosis of liver; Z20.822 Contact with and (suspected) exposure to COVID-19; D64.9 Anemia, unspecified; E11.65 Type 2 diabetes mellitus with hyperglycemia; E86.0 Dehydration; E87.6 Hypokalemia; E11.43 Type 2 diabetes mellitus with diabetic autonomic (poly)neuropathy; E78.00 Pure hypercholesterolemia, unspecified; Z86.73 Personal history of transient ischemic attack (TIA), and cerebral infarction without residual deficits; Z79.899 Other long term (current) drug therapy; Z79.84 Long term (current) use of oral hypoglycemic drugs
CPT/HCPCS: 36415; 36600; 47490; 71045; 74018; 74176; 74177; 76700; 76937; 78227; 78278; 80048; 80053; 80076; 81003; 82140; 82248; 82375; 82550; 82553; 82805; 82962; 83010; 83036; 83605; 83615; 84132; 84443; 85014; 85018; 85025; 85044; 86705; 86709; 86803; 86850; 86900; 86920; 87340; 87426; 88305; 88312; 88313; 93005; 93306; 93970; 99285; A9537; A9560; C1725; C1729; C1760; C1769; C9113; J1170; J1200; J1650; J1815; J2060; J2185; J2250; J2270; J2405; J2543; J2704; J3010; J3411; J3480; J3490; J7030; J7050; J7070; P9016; Q9967